=== PATIENT | female | born 1940 | race Caucasian/White ===

== ENCOUNTER 2017-04-20 19:02 | Emergency (ER) | payer MEDICARE, BC ==
[~2017-04-20] VITALS: Ht 154.9 cm; Wt 61.4 kg
[2017-04-20 19:02] VITALS: BP 138/62
[~2017-04-20 19:02] MED LIST: /ADVA50050 IN; ADRIAMYCIN IV; ADVAIR INH; ALBU17IN2 IN; CEFD300C OR; CIPR25SS OR; CITRICAL PO; COMPAZINE PO; CRES5TAB OR; FLUT11IN IN; KLS75TAB OR; MULTIVIT PO; NEUPOGEN IM; NEUPOGEN SQ; OMEP20TA7 OR; ONCOVIN IV; PRED50TA OR; PRIL20CA OR; QVAR INH; RITUXAN IV; SENN187T OR; SING10TA31 OR; SYNT75TA OR; SYNT88TA OR; TERB250T OR; VALT500T OR; VENTOLIN ROTAHALER INH; VERAMYST NASAL SPRAY; VITA-113 SL; VITA100T OR; VITACAP31 PO; ZOFR8TAB OR; [UNRECOGNIZED DRUG - CODE] OR; beclomethasone INH; citracal PO; compazine PO; cytoxan IV; estrace TOP; veramyst; vitamin d3 PO
[2017-04-20] MEDS ORDERED: SING10TA32 (19:27)
[2017-04-20] MEDS ORDERED: METO1TAB7 (19:27)
[2017-04-20] MEDS ORDERED: LOSA50TA20 (19:27)
[2017-04-20] MEDS ORDERED: ALBU17IN (19:27)
[2017-04-20] MEDS ORDERED: VERAMYST (19:27)
[2017-04-20] MEDS ORDERED: RISE1TAB (19:27)
[2017-04-20] MEDS ORDERED: CRES10TA32 (19:27)
[2017-04-20] MEDS ORDERED: LEVO75TA34 (19:27)
--- NOTE | 2017-04-21 07:22 | REP ---
Left foot four views: There is no fracture or dislocation. There is demineralization. 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 There is a calcaneal plantar spur. Signed by Cj Ramos MD 04/21/2017 07:14 A
== END 2017-04-20 21:03 | disposition home or self-care (01) ==
LOC: M ED 19:02
DX: S92.512A Displaced fracture of proximal phalanx of left lesser toe(s), initial encounter for closed fracture (principal); J45.909 Unspecified asthma, uncomplicated; X58.XXXA Exposure to other specified factors, initial encounter; Y92.018 Other place in single-family (private) house as the place of occurrence of the external cause; Y99.9 Unspecified external cause status; Y93.9 Activity, unspecified; Z88.1 Allergy status to other antibiotic agents; Z88.8 Allergy status to other drugs, medicaments and biological substances; Z91.040 Latex allergy status; Z79.899 Other long term (current) drug therapy

== ENCOUNTER → 2019-03-15 | Outpatient (REF) | payer MEDICARE, BC ==
[~2019-03-15] MED LIST changes: -/ADVA50050 IN; +ADVA1AER2 IN; +ALBU17IN; +CRES10TA; +LEVO75TA34; +LOSA50TA88; +METO1TAB7; +ONDA-227 OR; +RISE1TAB; +SING10TA32; +VERAMYST; -ZOFR8TAB OR
== END ==
LOC: M LAB REF 11:20
DX: B82.9 Intestinal parasitism, unspecified (principal)

== ENCOUNTER 2019-05-23 10:35 | Day surgery (SDC) | payer MEDICARE, BC ==
[~2019-05-23] VITALS: Ht 154.9 cm; Wt 60.3 kg
[~2019-05-23 10:35] MED LIST changes: +ALBU83IN INH; +APPL300T4 PO; +CALC600T5 PO; +FISH1000 PO; +FLAX100012 PO; +GLUC1CAP10 PO; +KETO2SHA9 TOP; -LEVO75TA34; +LEVO75TA34 PO; -LOSA50TA88; +LOSA50TA88 PO; -METO1TAB7; +METO1TAB7 PO; +MULTCAP PO; +OMEP20CA4 PO; +PROC2.5C PR; +RA T500C2 PO; -RISE1TAB; +RISE1TAB PO; +ROSU20TA5 PO; -SING10TA32; +SING10TA32 PO; +TRET0.0516 EX; +VENTAER INH; +VITA200010 PO; +VITA400C5 PO; +[UNRECOGNIZED DRUG - OTHER]
[2019-05-23] MEDS: NS 1,000 ML IV ONE (11:30)
[2019-05-23] MEDS ORDERED: PROPOFOL 200 MG/20 ML VIAL As Ordered ONE (12:03)
--- NOTE | 2019-05-23 12:28 | ROOR ---
Patient Name: Marline Horton Procedure Date: 05/23/2019 12:00 PM Date of : 1940 Age: 78 Room: [facility] Gender: Female Note Status: Finalized Procedure: Total Colonoscopy to Cecum + Cold Snare Polypectomy Indications: High risk colon cancer surveillance: Personal history of colonic polyps Providers: Manoj Lynch MD Referring MD: PETER MOON DO Requesting Provider: Medicines: Monitored Anesthesia Care Complications: No immediate complications. Procedure: Pre-Anesthesia Assessment: - The heart rate, respiratory rate, oxygen saturations, blood pressure, adequacy of pulmonary ventilation, and response to care were monitored throughout the procedure. The Colonoscope was introduced through the anus and advanced to the cecum, identified by appendiceal orifice and ileocecal valve. The colonoscopy was performed without difficulty. The patient tolerated the procedure well. The quality of the bowel preparation was excellent. Findings: The perianal and digital rectal examinations were normal. Non-bleeding internal hemorrhoids were found during retroflexion. The hemorrhoids were small and Grade I (internal hemorrhoids that do not prolapse). Multiple small and large-mouthed diverticula were found in the recto-sigmoid colon, sigmoid colon and descending colon. Two sessile polyps were found at 60 cm proximal to the anus. The polyps were small in size. These polyps were removed with a cold snare. Resection and retrieval were complete. The exam was otherwise without abnormality on direct and retroflexion views. Impression: - Non-bleeding internal hemorrhoids. - Diverticulosis in the recto-sigmoid colon, in the sigmoid colon and in the descending colon. - Two small polyps at 60 cm proximal to the anus, removed with a cold snare. Resected and retrieved. - The examination was otherwise normal on direct and retroflexion views. - The exam was otherwise normal to the cecum. Recommendation: - Patient has a contact number available for emergencies. The signs and symptoms of potential delayed complications were discussed with the patient. Return to normal activities tomorrow. Written discharge instructions were provided to the patient. - High fiber diet. - Discharge patient to home. - Continue present medications. - Await pathology results. - Telephone GI clinic for pathology results in 1 week. - Repeat colonoscopy for symptoms only. - Return to referring physician. - The findings and recommendations were discussed with the patient's family. Manoj Lynch MD Manoj Lynch MD 05/23/2019 12:27:51 PM Electronically signed by Manoj Lynch MD Number of Addenda: 0 Note Initiated On: 05/23/2019 12:00 PM Estimated Blood Loss: Estimated blood loss: none.
[2019-05-23 12:50] VITALS: BP 149/68
== END 2019-05-23 12:58 | disposition home or self-care (01) ==
LOC: M OPP 10:35
PROVIDERS: ATTEND Internal Medicine Gastroenterology
DX: Z86.010 Personal history of colon polyps (principal); K64.0 First degree hemorrhoids; D12.6 Benign neoplasm of colon, unspecified; K57.30 Diverticulosis of large intestine without perforation or abscess without bleeding; Z79.899 Other long term (current) drug therapy; Z88.0 Allergy status to penicillin; Z88.8 Allergy status to other drugs, medicaments and biological substances; Z91.040 Latex allergy status; Z09 Encounter for follow-up examination after completed treatment for conditions other than malignant neoplasm

== ENCOUNTER 2021-05-03 07:34 | Emergency (ER) | payer MEDICARE, BC ==
[~2021-05-03] VITALS: Ht 152.4 cm; Wt 64.9 kg
[~2021-05-03 07:34] MED LIST changes: -CALC600T5 PO; +CALC600T61 PO; +KETO2SHA8 TOP; -KETO2SHA9 TOP; +OMEP1CAP73 PO; -OMEP20CA4 PO; +RISE150T PO; -RISE1TAB PO; -VITA400C5 PO; +VITA400C83 PO
[2021-05-03 08:20] VITALS: BP 150/85
[2021-05-03] MEDS ORDERED: AFRISPR3 NARES (08:22)
== END 2021-05-03 08:42 | disposition home or self-care (01) ==
LOC: M ED 07:34
DX: H65.02 Acute serous otitis media, left ear (principal); J30.89 Other allergic rhinitis; Z79.899 Other long term (current) drug therapy; Z88.0 Allergy status to penicillin; Z88.1 Allergy status to other antibiotic agents; Z91.040 Latex allergy status

== ENCOUNTER 2022-02-16 18:39 | Emergency (ER) | payer MEDICARE, BC ==
[~2022-02-16] VITALS: Ht 157.5 cm; Wt 66.0 kg
[~2022-02-16 18:39] MED LIST changes: +AFRISPR3 NARES; +LOSA50TA28 PO; -LOSA50TA88 PO
[2022-02-16] MEDS ORDERED: DOXYCYCLINE HYCLATE 100MG TABLET PO ONE (21:45)
[2022-02-16 22:19] VITALS: BP 141/74
== END 2022-02-16 22:20 | disposition home or self-care (01) ==
LOC: M ED 18:39
DX: S41.151A Open bite of right upper arm, initial encounter (principal); W57.XXXA Bitten or stung by nonvenomous insect and other nonvenomous arthropods, initial encounter; Y92.9 Unspecified place or not applicable; Y93.9 Activity, unspecified; Y99.9 Unspecified external cause status; A69.20 Lyme disease, unspecified; J45.909 Unspecified asthma, uncomplicated; I10 Essential (primary) hypertension; E03.9 Hypothyroidism, unspecified; K21.9 Gastro-esophageal reflux disease without esophagitis; J30.9 Allergic rhinitis, unspecified; Z79.899 Other long term (current) drug therapy; Z88.8 Allergy status to other drugs, medicaments and biological substances; Z88.0 Allergy status to penicillin; Z88.1 Allergy status to other antibiotic agents; Z91.040 Latex allergy status

== ENCOUNTER → 2024-02-20 | Outpatient (CLI) | payer MEDICARE, BC ==
[~2024-02-20] MED LIST changes: +ALBU2.5V10 INH; -ALBU83IN INH; +MONT-5 PO; -ROSU20TA5 PO; +ROSU20TA61 PO; -SING10TA32 PO
== END ==
LOC: M CLY 14:39
PROVIDERS: ATTEND Physician Assistant
DX: J18.9 Pneumonia, unspecified organism (principal)

== ENCOUNTER → 2024-03-19 | Outpatient (CLI) | payer MEDICARE, BC | LOC: M CLY 14:19 | PROVIDERS: ATTEND Family Medicine | DX: J18.9 Pneumonia, unspecified organism (principal); M48.54XA Collapsed vertebra, not elsewhere classified, thoracic region, initial encounter for fracture ==

== ENCOUNTER → 2024-04-18 | Outpatient (REF) | payer MEDICARE, BC ==
[2024-04-18 13:35] LABS: FREE T4 1.3 NG/DL (0.89-1.76)
[2024-04-18 13:36] LABS: THYROID STIMULATING HORMONE 1.121 uIU/ML (0.55-4.78)
[2024-04-18 16:25] LABS: TOTAL T3 121.1 NG/DL (60.0-181.0)
== END ==
LOC: M SFHCCLAY 07:11
PROVIDERS: ATTEND Family Medicine
DX: E03.9 Hypothyroidism, unspecified (principal)

== ENCOUNTER 2024-07-09 03:39 | Observation (INO) | payer MEDICARE, BC ==
[~2024-07-09] VITALS: Ht 152.4 cm; Wt 65.9 kg
[~2024-07-09 03:39] MED LIST changes: -ROSU20TA61 PO; +ROSU20TA86 PO
[2024-07-09] MEDS ORDERED: diazePAM 10MG/2ML SYRINGE IV ONE (05:35)
[2024-07-09] MEDS: diazePAM 10MG/2ML SYRINGE IM STA (05:58)
[2024-07-09] MEDS: ACETAMINOPHEN *IV* 1,000 MG in IV 1 EA IV ONE (08:48)
[2024-07-09] MEDS ORDERED: LEVO88TA24 PO (09:12)
[2024-07-09] MEDS: LEVOTHYROXINE 88MCG TABLET (0.088 MG) PO SCH (09:24)
[2024-07-09 10:01] LABS: BLOOD UREA NITROGEN 16 MG/DL (9-23); CALCIUM LEVEL 9.2 MG/DL (8.3-10.6); CARBON DIOXIDE LEVEL 22 MMOL/L (20-31); CHLORIDE LEVEL 106 MMOL/L (98-107); CREATININE FOR GFR 0.56 MG/DL (0.55-1.30); GLOMERULAR FILTRATION RATE > 60.0 (>32); GLUCOSE, FASTING 105 MG/DL (74-106); POTASSIUM SERUM 4.3 MMOL/L (3.5-5.1); SODIUM LEVEL 140 MMOL/L (136-145)
[2024-07-09] MEDS ORDERED: D32000CA PO (10:11)
[2024-07-09] MEDS ORDERED: CITRTAB18 PO (10:11)
[2024-07-09 10:12] LABS: INR 1.02; PARTIAL THROMBOPLASTIN TIME 24.1 SECONDS (24.8-34.2); PROTHROMBIN TIME 13.1 SECONDS (12.5-14.5)
[2024-07-09] MEDS ORDERED: LOSA25TA13 PO (10:15)
[2024-07-09] MEDS ORDERED: THERTAB52 PO (10:19)
[2024-07-09] MEDS ORDERED: FISH100015 PO (10:19)
[2024-07-09] MEDS ORDERED: TOBR0.3S37 OS (10:23)
[2024-07-09] MEDS ORDERED: ASPI1TAB8 PO (10:26)
[2024-07-09] MEDS ORDERED: CO-E100C2 PO (10:31)
[2024-07-09] MEDS ORDERED: VITA400C50 PO (10:31)
[2024-07-09] MEDS ORDERED: PRES10CA2 PO (10:31)
[2024-07-09] MEDS ORDERED: HOME MED LIST COMPLETE! XX SCH (10:40)
[2024-07-09 11:04] LABS: HEMATOCRIT 40.2 % (36.0-47.0); MEAN CORPUSCULAR HEMOGLOBIN 32.7 pg (27.0-33.0); MEAN CORPUSCULAR HGB CONC 34.8 g/dl (32.0-36.5); MEAN CORPUSCULAR VOLUME 93.9 fl (80.0-96.0); PLATELET COUNT, AUTOMATED 271 10^3/uL (150-450); RED BLOOD COUNT 4.28 10^6/uL (4.00-5.40); WHITE BLOOD COUNT 10.1 10^3/uL (4.0-10.0)
[2024-07-09 11:13] VITALS: BP 164/72; TEMP 97.7; O2SAT 99
[2024-07-09] MEDS ORDERED: MORPHINE 2 MG/ML 1ML VIAL IV PRN (12:25)
[2024-07-09] MEDS ORDERED: ALBUTEROL SULFATE 2.5MG/0.5ML INH NEB SOLN INH PRN (12:25)
[2024-07-09] MEDS ORDERED: oxyCODONE 5MG TAB PO PRN (12:25)
[2024-07-09] MEDS: LOSARTAN 50MG TABLET PO ONE (13:00)
[2024-07-09] MEDS: LOSARTAN 25 MG TAB PO ONE (13:26)
[2024-07-09] MEDS: ACETAMINOPHEN 500 MG TAB PO SCH (13:27)
[2024-07-09] MEDS: OMEPRAZOLE 20MG CAP PO SCH (13:58)
[2024-07-09] MEDS: TOBRAMYCIN 0.3% OPHTH SOLN 5ML OS SCH (14:00)
[2024-07-09 17:17] VITALS: BP 147/75; TEMP 98; O2SAT 95
[2024-07-09] MEDS: MORPHINE 2 MG/ML 1ML VIAL IV ONE (19:50)
[2024-07-09 20:04] VITALS: BP 170/86; TEMP 96.7; O2SAT 96
[2024-07-09] MEDS: oxyCODONE 5MG TAB PO ONE (21:00)
[2024-07-09] MEDS: METOPROLOL SUCC (TopROL XL) 50MG **XL** TAB PO SCH (21:00)
[2024-07-09] MEDS: ASPIRIN 81MG ENTERIC TABLET PO SCH (21:01)
[2024-07-09] MEDS: VITAMIN E 400 INTERNATIONAL UNITS CAP PO SCH (21:01)
[2024-07-10] VITALS: BP 160/75; TEMP 97.5; O2SAT 99
[2024-07-10 00:05] VITALS: BP 179/82; TEMP 97.6; O2SAT 100
[2024-07-10 04:50] VITALS: BP 149/74; TEMP 96.8; O2SAT 100
[2024-07-10] MEDS: LEVOTHYROXINE 88MCG TABLET (0.088 MG) PO SCH (06:25)
[2024-07-10] MEDS: ROSUVASTATIN 10 MG TAB (CRESTOR) PO SCH (07:44)
[2024-07-10] MEDS: LOSARTAN 50MG TABLET PO SCH (07:45)
[2024-07-10 07:46] VITALS: BP 149/74
[2024-07-10] MEDS: LOSARTAN 25 MG TAB PO SCH (07:46)
[2024-07-10 08:01] VITALS: BP 158/68; TEMP 96.7; O2SAT 97
[2024-07-10 11:45] VITALS: BP 143/71; TEMP 97.5; O2SAT 97
[2024-07-10] MEDS ORDERED: HYDR-3713 PO (11:46)
== END 2024-07-10 14:00 | disposition home or self-care (01) ==
LOC: M ED 03:39 → INTOOBSV 09:18 → M ED INP 09:18 → M PCU 10:57
PROVIDERS: ADMIT General Practice; ATTEND General Practice
DX: S22.41XA Multiple fractures of ribs, right side, initial encounter for closed fracture (principal); J93.9 Pneumothorax, unspecified; W01.0XXA Fall on same level from slipping, tripping and stumbling without subsequent striking against object, initial encounter; Y92.018 Other place in single-family (private) house as the place of occurrence of the external cause; Y99.9 Unspecified external cause status; I11.9 Hypertensive heart disease without heart failure; N20.0 Calculus of kidney; M81.0 Age-related osteoporosis without current pathological fracture; E78.5 Hyperlipidemia, unspecified; I71.20 Thoracic aortic aneurysm, without rupture, unspecified; E03.9 Hypothyroidism, unspecified; J45.909 Unspecified asthma, uncomplicated; Z79.82 Long term (current) use of aspirin; Z79.899 Other long term (current) drug therapy; Z91.040 Latex allergy status; J30.2 Other seasonal allergic rhinitis
CPT/HCPCS: 36415; 70450; 71046; 71250; 72125; 80048; 85027; 85610; 85730; 96372; 96374; 99285; G0378; J0131; J3360

== ENCOUNTER → 2025-06-06 | Outpatient (CLI) | payer MEDICARE, BC ==
[~2025-06-06] MED LIST changes: +ASPI1TAB8 PO; +CITRTAB18 PO; +CO-E100C2 PO; +D32000CA PO; +FISH100019 PO; +HYDR-3713 PO; +KETO120S5 TOP; -KETO2SHA8 TOP; +LEVO88TA24 PO; +LOSA25TA13 PO; +PRES10CA2 PO; -RA T500C2 PO; +THERTAB52 PO; +TOBR0.3S37 OS; +TURM500C10 PO; +VITA400C50 PO
== END ==
LOC: M CLY 14:13
PROVIDERS: ATTEND Physician Assistant
DX: S81.801A Unspecified open wound, right lower leg, initial encounter (principal); Z53.9 Procedure and treatment not carried out, unspecified reason

== ENCOUNTER → 2025-06-06 | Outpatient (CLI) | payer MEDICARE, BC | LOC: M CLY 14:21 | PROVIDERS: ATTEND Physician Assistant | DX: S81.801A Unspecified open wound, right lower leg, initial encounter (principal); X58.XXXA Exposure to other specified factors, initial encounter; Y92.9 Unspecified place or not applicable; Y93.9 Activity, unspecified; Y99.9 Unspecified external cause status ==